=== PATIENT | male | born 1955 | race Caucasian/White ===

== ENCOUNTER 2016-11-13 07:29 | Inpatient (IN) | payer BC ==
[2016-11-13] VITALS (7 sets, daily range): BP systolic 95–115; BP diastolic 55–92
[~2016-11-13] VITALS: Ht 180.3 cm; Wt 67.0 kg
[2016-11-13 07:57] LABS: EOSINOPHIL (%) 1.7 % (0-5); EOSINOPHIL COUNT 0.1 K/uL (0-0.3); HEMATOCRIT 50.6 % (38.0-50.0); IMMATURE GRANULOCYTE (%) 0.1 % (0.0-0.7); IMMATURE GRANULOCYTE COUNT 0.1 K/uL; LYMPHOCYTE COUNT 1.8 K/uL (1.0-2.8); MCH 31.4 PG (29.0-34.0); MCV 92.3 FL (86-99); MEAN PLAT.VOLUME 11.5 uM^3 (9.0-12.4); MONOCYTE COUNT 0.5 K/uL (0-0.8); NEUTROPHIL (%) 68.7 % (45-76); NEUTROPHIL COUNT 5.3 K/uL (1.8-6.4); PLATELET COUNT 216 K/uL (156-360); RBC DIS.WIDTH-CV 12.8 % (11.8-14.6); RBC DIS.WIDTH-SD 42.6 % (39-53); RED BLOOD COUNT 5.48 M/uL (4.00-5.50); WHITE BLOOD COUNT 7.7 K/uL (4.1-10.2)
[2016-11-13 08:08] LABS: INTER. NORMALIZED RATIO 1.1; PROTHROMBIN TIME 11.4 (9.2-11.2); PTT 27.1 (25-32)
[2016-11-13] MEDS ORDERED: LASIX20 MG PO (08:25)
[2016-11-13] MEDS ORDERED: CARVEDILOL3.125 MG PO (08:26)
[2016-11-13] MEDS ORDERED: LISINOPRIL2.5 MG PO (08:26)
[2016-11-13] MEDS ORDERED: SPIRONOLACTONE25 MG PO (08:26)
[2016-11-13 08:35] LABS: AMYLASE 52 IU/L (1-118); ANION GAP 7 MEQ/L (2-14); CHLORIDE 103 MEQ/L (99-109); SAMPLE HEMOLYSIS CHECK 1; SAMPLE ICTERIC CHECK 0; SAMPLE LIPEMIA CHECK 0; SODIUM 135 MEQ/L (136-147)
[2016-11-13 08:36] LABS: POTASSIUM 5.1 MEQ/L (3.7-5.4)
[2016-11-13 08:42] LABS: GFR ESTIMATE (CALCULATED) > 59 mL/min/; GLUCOSE 128 mg/dL (70-99); LIPASE 36 U/L (1.0-51.0); SERUM ETHYL ALCOHOL < 10 mg/dL; UREA NITROGEN (BUN) 23 mg/dL (9-23)
[2016-11-13 08:44] LABS: TROP-I INTERPRETATION NEGATIVE; TROPONIN-I 0.07 ng/mL (0.0-0.30)
[2016-11-13] MEDS ORDERED: LASIX40 MG PO (09:19)
[2016-11-13 10:30] LABS: ADD MIUA? NO; BILIRUBIN NEGATIVE; BLOOD NEGATIVE; COLOR YELLOW ((YELLOW)); GLUCOSE (STRIP) NEGATIVE; KETONES NEGATIVE; LEUKOCYTES NEGATIVE; NITRITE NEGATIVE; PH, URINE 5.5 (5-8); PROTEIN (STRIP) NEGATIVE; SPECIFIC GRAVITY 1.012 (1.000-1.030); UCUL ADDED? NO; UROBILINOGEN 0.2 MG/DL (0.2-1.0)
[2016-11-13 10:37] LABS: Estimated Average Glucose 114 mg/dL (70-123); HEMOGLOBIN A1c (GLYCOHEMOGLOB) 5.6 % HGB (Below 5.7)
[2016-11-13 11:16] LABS: AMPHETAMINE NEGATIVE (500 ng/mL); BARBITURATES NEGATIVE (200 ng/mL); BENZODIAZEPINES NEGATIVE (150 ng/mL); COCAINE NEGATIVE (150 ng/mL); INTERNAL CONTROLS VALID? YES; METHADONE NEGATIVE (200 ng/mL); METHAMPHETAMINE NEGATIVE (500 ng/mL); OPIATES (MORPHINE) NEGATIVE (100 ng/mL); OXYCODONE NEGATIVE (100 ng/mL); PHENCYCLIDINE NEGATIVE (25 ng/mL); PROPOXYPHENE NEGATIVE (300 ng/mL); THC CANNABINOIDS NEGATIVE (50 ng/mL); TRICYCLIC ANTIDEPRESSANTS NEGATIVE (300 ng/mL)
[2016-11-14 04:00] VITALS: BP 112/76
[2016-11-14 07:30] VITALS: BP 103/77
[2016-11-14 09:23] LABS: ANION GAP 11 MEQ/L (2-14); CHLORIDE 103 MEQ/L (99-109); GFR ESTIMATE (CALCULATED) > 59 mL/min/; GLUCOSE 100 mg/dL (70-99); HDL CHOLESTEROL 39 MG/DL (Desirable>=40); LDL CHOLESTEROL 106 mg/dL (Desirable<100); NON-HDL CHOLESTEROL 123 mg/dL (Desirable<160); POTASSIUM 4.6 MEQ/L (3.7-5.4); SAMPLE HEMOLYSIS CHECK 0; SAMPLE ICTERIC CHECK 0; SAMPLE LIPEMIA CHECK 0; SODIUM 138 MEQ/L (136-147); TOTAL CHOLESTEROL 162 mg/dL (Desirable<200); TRIGLYCERIDES 83 MG/DL (Normal: <150); UREA NITROGEN (BUN) 23 mg/dL (9-23)
[2016-11-14 12:40] LABS: BASE EXCESS 0.9 mEq/L (-3 to +3); CARBOXY HGB 1.2 % (0-5); DEVICE ROOM AIR; METHEMOGLOBIN 1.3 % (0-1.5); PCO2 42 mm Hg (35-45); PO2 33 mm Hg (80-100); SITE CATH LAB DRAW
[2016-11-14 18:00] VITALS: BP 98/67
[2016-11-14 19:26] VITALS: BP 101/66
[2016-11-14 23:24] VITALS: BP 96/68
[2016-11-15 03:18] VITALS: BP 98/67
[2016-11-15 03:23] VITALS: BP 118/56
[2016-11-15 04:32] LABS: PLATELET COUNT 195 K/uL (156-360)
[2016-11-15 04:39] LABS: MCH 32.2 PG (29.0-34.0); MCHC 34.9 G/DL (30.0-36.0); MCV 92.3 FL (86-99); RBC DIS.WIDTH-CV 12.7 % (11.8-14.6); RED BLOOD COUNT 4.66 M/uL (4.00-5.50)
[2016-11-15 08:49] VITALS: BP 103/75
[2016-11-15 11:21] VITALS: BP 101/70
[2016-11-15] MEDS ORDERED: ATORVASTATIN CA40 MG PO (12:25)
[2016-11-15] MEDS ORDERED: ELIQUIS5 MG PO (12:25)
== END 2016-11-15 14:00 | disposition home or self-care (01) | DRG 69 ==
LOC: EME 07:29 → 4EAST 09:26 → EDOF 09:26 → 4EAST 10:31
PROVIDERS: Emergency Medicine; Internal Medicine; Internal Medicine Cardiovascular Disease
DX: G45.9 Transient cerebral ischemic attack, unspecified (principal); I50.20 Unspecified systolic (congestive) heart failure; J90 Pleural effusion, not elsewhere classified; I27.2 Other secondary pulmonary hypertension; E78.89 Other lipoprotein metabolism disorders
CPT/HCPCS: 36415; 36600; 70450; 80048; 80061; 81003; 82150; 82803; 83036; 83690; 84484; 85025; 85027; 85347; 85610; 85730; 86850; 86900; 86901; 93005; 93880; 99281; 99285; C1769; C1887; C1894; G0480; J1644; J2250; J3010; J7050